=== PATIENT | male | born 1965 | race Caucasian/White ===

== ENCOUNTER 2016-09-19 13:30 | Observation (INO) ==
[2016-09-19] MEDS ORDERED: 0.9 % Sodium Chloride 1,000 ML IVC ONE ×2 (13:51→16:00)
[2016-09-19] MEDS ORDERED: *HR* HYDROmorphone (PF) 1 MG/ML SYRINGE IV ONE (13:51)
[2016-09-19] MEDS ORDERED: Ondansetron 4 MG/2 ML VIAL IV ONE (13:51)
--- NOTE | 2016-09-19 14:34 | Emergency Department Note ---
Disposition Clinical Impression: Ureterolithiasis, Intractable pain Disposition: Admitted As Inpatient Abdominal Pain HPI - General Chief Complaint: ED Urogenital-Male Stated Complaint: R Flank Pain Time Seen by Provider: 09/19/16 13:50 Source: family Mode of arrival: ambulatory Nursing Notes Reviewed: Yes Vital Signs Reviewed: Yes - History of Present Illness Pt Subjective Complaint: flank pain Onset (ago): day(s) (2) Consistency: constant Location: R flank Pain Scale: 10 Quality: stabbing, sharp Radiation: R flank Improves with: nothing Worsens with: nothing Context: other (Diagnosed with a 3 mm right ureteral calculus on friday) Associated symptoms: Reports: nausea, vomiting. Denies: dysuria, hematemesis Treatments prior to arrival: prescription analgesics - Related Data Home Medications Medication Instructions Recorded Confirmed Meloxicam [Mobic] 7.5 mg PO DAILY 09/19/16 09/19/16 Omeprazole [PriLOSEC] 20 mg PO BIDAC 09/19/16 09/19/16 Tamsulosin [Flomax] 0.4 mg PO DAILY 09/19/16 09/19/16 Allergies Allergy/AdvReac Type Severity Reaction Status Date / Time Penicillins Allergy Rash Verified 09/19/16 13:45 All systems ED: reviewed and negative except as stated. Constitutional: Denies: fever, chills Gastrointestinal: Reports: nausea, hematochezia Abdominal Pain PMH - Past Medical History Medical history: Reports: kidney stones - Social History Smoking status: Unknown if ever smoked Physical Exam - General Limitations: no limitations General appearance: alert, in distress (writhing in pain) - Eye Eye exam: Present: normal appearance, PERRL, EOMI - ENT ENT exam: normal exam, normal oropharynx, mucous membranes moist - Neck Neck exam: Present: normal inspection, full ROM, trachea midline - Chest Chest inspection: Present: normal inspection, symmetric chest wall rise - Respiratory Respiratory exam: Present: normal lung sounds bilaterally - Cardiovascular Cardiovascular exam: Present: regular rate, normal rhythm, normal heart sounds - Abdominal Exam Abdominal exam: Present: soft, Non-Tender. Absent: tenderness, distention, guarding, rebound, rigidity - Neurological Exam Neurological exam: Present: alert, oriented X3 - Psychiatric Psychiatric exam: Present: agitated - Skin Skin exam: Present: diaphoresis Course Vital Signs Temperature 97.8 F 09/19/16 13:45 Pulse Rate 94 03/09/17 13:45 Respiratory Rate 18 09/19/16 13:45 Blood Pressure 138/77 09/19/16 13:45 O2 Sat by Pulse Oximetry 97 09/19/16 13:45 Temperature 97.8 F 09/19/16 13:45 Pulse Rate 94 09/19/16 13:45 Respiratory Rate 18 09/19/16 13:45 Blood Pressure 138/77 09/19/16 13:45 O2 Sat by Pulse Oximetry 97 09/19/16 13:45 Oxygen Delivery Oxygen Delivery Room Air Abdominal Pain - MDM Narrative Medical decision making narrative: Dr. Spivey to admit - Differential Diagnosis Differential Diagnosis: Likely: calculus of kidney, constipation, colonic obstruction, diverticulitis, small bowel obstruction - Medical Records Medical records reviewed: Yes I reviewed the patient's medical records. - Lab Data Lab results reviewed: Yes I reviewed the patient's lab results. Result diagrams: 09/19/16 15:15 09/19/16 15:15 Lab Results 09/19/16 09/19/16 09/19/16 Range/Units 15:15 15:15 16:00 WBC 10.9 (4.3-11.1) K/mcL RBC 5.65 H (4.19-5.50) M/mcL Hgb 16.2 (12.9-16.9) g/dL Hct 47.2 (37.5-50.1) % MCV 83.5 (83.0-100.0) fL MCH 28.7 (28.0-33.3) pg MCHC 34.3 (31.6-35.5) g/dL RDW 11.8 (11.5-14.5) % Plt Count 138 L (140-400) K/mcL MPV 11.2 (9.4-12.4) fL Immature Gran % 0.6 (0-4) % Seg Neutrophils % 84.2 % Lymphocytes % 8.2 % Monocytes % 6.5 % Eosinophils % 0.3 % Basophils % 0.2 % Neutrophils # 9.2 H (1.6-8.9) K/mcL Lymphocytes # 0.9 (0.6-4.6) K/mcL Monocytes # 0.7 (0.0-1.3) K/mcL Eosinophils # 0.0 (0.0-0.6) K/mcL Basophils # 0.0 (0.0-0.2) K/mcL Sodium 133 L (136-145) mEq/L Potassium 4.1 (3.5-4.5) mEq/L Chloride 100 (98-109) mEq/L Carbon Dioxide 25 (19-29) mEq/L BUN 14 (8-26) mg/dL Creatinine 1.14 (0.72-1.25) mg/dL Est GFR ( Amer) > 60 (> 60) Est GFR (Non-Af Amer) > 60 (> 60) BUN/Creatinine Ratio 12 (6-26) Glucose 103 H (70-99) mg/dL Calculated Osmolality 277 L (280-300) Calcium 9.1 (8.6-10.8) mg/dL Urine Color Yellow (Yellow) Urine Clarity Slightly Hazy (Clear) Urine pH 7.0 (5.0-8.0) pH Units Ur Specific [place] 1.017 (1.010-1.025) Urine Protein 30 H (Neg-Trace) mg/dL Urine Glucose (UA) Normal (Normal) mg/dL Urine Ketones Trace H (Negative) mg/dL Urine Blood Large H (Negative) Urine Nitrite Negative (Negative) Urine Bilirubin Negative (Negative) Urine Urobilinogen Normal (Normal) mg/dL Ur Leukocyte Esterase Negative (Negative) Urine Microscopic RBC TNTC H (0-3) per hpf Urine Microscopic WBC 5-15 H (0-3) per hpf Ur Squamous Epith Cells Many H (None-Few) per lpf Urine Bacteria None Seen (None-Few) per hpf Hyaline Casts None Seen (None-Few) per lpf Ur Culture Indicated? YES A (NO) - Radiology Data Radiology results reviewed: Yes I reviewed the patient's radiology results.
[2016-09-19 15:21] LABS: Basophils % 0.2 %; Eosinophils % 0.3 %; Hematocrit 47.2 % (37.5-50.1); Hemoglobin 16.2 g/dL (12.9-16.9); Immature Granulocytes % 0.6 % (0-4); Lymphocytes # 0.9 K/mcL (0.6-4.6); Lymphocytes % 8.2 %; Mean Corpuscular HGB Conc 34.3 g/dL (31.6-35.5); Mean Corpuscular Hemoglobin 28.7 pg (28.0-33.3); Mean Corpuscular Volume 83.5 fL (83.0-100.0); Mean Platelet Volume 11.2 fL (9.4-12.4); Monocytes # 0.7 K/mcL (0.0-1.3); Monocytes % 6.5 %; Neutrophils # 9.2 K/mcL (1.6-8.9); Platelet Count 138 K/mcL (140-400); Red Blood Count 5.65 M/mcL (4.19-5.50); Red Cell Distribution Width 11.8 % (11.5-14.5); Segmented Neutrophils % 84.2 %
[2016-09-19 15:31] LABS: BUN/Creatinine Ratio 12 (6-26); Blood Urea Nitrogen 14 mg/dL (8-26); Calcium 9.1 mg/dL (8.6-10.8); Carbon Dioxide 25 mEq/L (19-29); Chloride 100 mEq/L (98-109); Glucose 103 mg/dL (70-99); Osmolality,Calculated 277 (280-300); Potassium 4.1 mEq/L (3.5-4.5); Sodium 133 mEq/L (136-145); eGFR For African Americans > 60 (> 60); eGFR For Non-African Americans > 60 (> 60)
[2016-09-19] MEDS ORDERED: Ondansetron 4 MG/2 ML VIAL IVP PRN (16:01)
[2016-09-19] MEDS ORDERED: *HR* HYDROmorphone (PF) 1 MG/ML SYRINGE IV PRN ×2 (16:01→16:33)
[2016-09-19 16:08] LABS: Bilirubin,Urine Negative (Negative); Blood,Urine Large (Negative); Color,Urine Yellow (Yellow); Glucose,Urine (UA) Normal (Normal); Ketones,Urine Trace mg/dL (Negative); Leukocyte Esterase,Urine Negative (Negative); Nitrite,Urine Negative (Negative); Protein,Urine 30 mg/dL (Neg-Trace); Specific Gravity,Urine 1.017 (1.010-1.025); Urobilinogen,Urine Normal (Normal)
[2016-09-19 16:12] LABS: Bacteria,Urine None Seen per hpf (None-Few); Hyaline Casts,Urine None Seen per lpf (None-Few); RBC,Urine TNTC per hpf (0-3); Squamous Epithelial Cell,Urine Many per lpf (None-Few)
[2016-09-19 16:13] LABS: Clarity,Urine Slightly Hazy (Clear)
[2016-09-19] MEDS ORDERED: Naloxone 0.4 MG/ML INJ IVP PRN (16:30)
[2016-09-19] MEDS ORDERED: Acetaminophen 325 MG TABLET PO PRN (16:30)
[2016-09-19] MEDS ORDERED: *HR* OxyCODONE Immed Rel 5 MG TABLET PO PRN (16:30)
[2016-09-19] MEDS ORDERED: *HR* Promethazine 25 MG/ML VIAL IVP PRN (16:30)
[2016-09-19] MEDS ORDERED: Ketorolac 15 MG/ML VIAL IVP PRN (16:30)
--- NOTE | 2016-09-19 17:30 | Urology History & Physical ---
Date of Encounter: 09/19/16 Time of Encounter: 17:27 Assessment and Plan (1) Ureterolithiasis Current Visit: Yes Status: Acute 51 year old man with a right ureteral stone. He will be admitted for pain control. If he continues to have pain we will consider right ureteroscopy, laser lithotripsy, and stent placement. We discussed the etiology of stone disease and the importance of removing the entire stone burden. The patient understands that it may take more than one procedure for him to become completely stone-free. I explained to the patient that due to the location and size of his stone that ureteroscopy with laser lithotripsy offers the best chance at being stone-free with one procedure. The patient understands that this procedure involves using a small flexible scope to access the ureter under general anesthesia. The patient understands that after the procedure, it is likely that he will have an indwelling ureteral stent (a plastic drainage tube from the kidney to the bladder) though this is sometimes not necessary. I explained to that patient that this stent would have to be removed at a later time in my office (usually 1-2 weeks after ureteroscopy). We discussed the risks of the procedure including but not limited to bleeding, infection, failure to remove all stones, need for multiple operations and procedures, and damage to the kidney, bladder, or ureter. I explained to the patient that the risk of perforating the ureteral wall during this procedure is 1-7% and that the treatment for this complication is usually placement of a ureteral stent, though rarely a percutaneous nephrostomy tube (drainage tube through the back into the kidney) or open operation is required. History of Present Illness Chief complaint: Right flank pain HPI: Mr. Darnell is a 51 year old male who presents with right flank pain. He was seen 4 days ago at the [facility] and a CT scan showed a stone in the right distal ureter. His pain became more severe this morning. He started to have nausea and emesis. He came to the [place] emergency room. A repeat CT scan showed persistence of the right distal ureteral stone with evidence of hydronephrosis. The pain was in the right flank and radiating to the groin. It was quite severe. Pain medication and eventually help the pain. He reports a history of stones. He hasn't had a have surgery previously. Past Med Surg Social Fam HX - Past Medical History Medical history: kidney stones - Social History Smoking Status: Unknown if ever smoked - Family History Father Hx Family Genitourinary Disorders: No (No stone history.) Medications and Allergies Meloxicam [Mobic] 7.5 mg PO DAILY 09/19/16 [History] Omeprazole [PriLOSEC] 20 mg PO BIDAC 09/19/16 [History] Tamsulosin [Flomax] 0.4 mg PO DAILY 09/19/16 [History] Allergies Penicillins Allergy (Verified 09/19/16 13:45) Rash Review of Systems - Constitutional no chills, no fever(s) - EENT Nose, mouth and throat: no dizziness - Cardiovascular no chest pain - Respiratory no dyspnea - Gastrointestinal nausea, vomiting - Genitourinary flank pain, no hematuria - Musculoskeletal no back pain - Integumentary no erythema, no rash - Neurological no weakness - Psychiatric no suicidal ideation - Hematologic/Lymphatic no easy bleeding - Allergic/Immunologic no wheezing Exam Initial Vital Signs Temp Pulse Resp BP Pulse Ox 97.8 F 94 18 138/77 97 09/19/16 13:45 09/19/16 13:45 09/19/16 13:45 09/19/16 13:45 09/19/16 13:45 - General physical appearance Present: well developed, well nourished, no distress - Eyes Absent: icteric - ENT Present: normal nares - Neck Present: trachea midline - Respiratory Present: normal respiratory effort - Cardiovascular Cardiovascular exam IM: RRR - Abdomen Abdomen: Present: soft Urology Results - Labs 09/19/16 15:15 09/19/16 15:15 Abnormal lab results RBC 5.65 M/mcL (4.19-5.50) H 09/19/16 15:15 Plt Count 138 K/mcL (140-400) L 09/19/16 15:15 Neutrophils # 9.2 K/mcL (1.6-8.9) H 09/19/16 15:15 Sodium 133 mEq/L (136-145) L 09/19/16 15:15 Glucose 103 mg/dL (70-99) H 09/19/16 15:15 Calculated Osmolality 277 (280-300) L 09/19/16 15:15 Urine Protein 30 mg/dL (Neg-Trace) H 09/19/16 16:00 Urine Ketones Trace mg/dL (Negative) H 09/19/16 16:00 Urine Blood Large (Negative) H 09/19/16 16:00 Urine Microscopic RBC TNTC per hpf (0-3) H 09/19/16 16:00 Urine Microscopic WBC 5-15 per hpf (0-3) H 09/19/16 16:00 Ur Squamous Epith Cells Many per lpf (None-Few) H 09/19/16 16:00 Ur Culture Indicated? YES (NO) A 09/19/16 16:00 All other labs normal. - Imaging CT scan - abdomen: report reviewed, image reviewed CT scan - pelvis: report reviewed, image reviewed
--- NOTE | 2016-09-20 09:48 | Urology Progress Note ---
Date of Encounter: 09/20/16 Time of Encounter: 09:47 - Assessment and Plan (1) Ureterolithiasis Current Visit: Yes Status: Acute Assessment and plan: Right ureteral stone. Plan for right ureteroscopy, laser lithotripsy, and stent placement. He is aware of all risks of the surgery. He is willing to proceed. Progress Note Narrative: Doing okay. Mild pain overnight. He hasn't passed his stone. Objective Initial Vital Signs Temp Pulse Resp BP Pulse Ox 97.8 F 94 18 138/77 97 09/19/16 13:45 09/19/16 13:45 09/19/16 13:45 09/19/16 13:45 09/19/16 13:45 - General physical appearance Present: well developed, well nourished, no distress - Respiratory Present: normal respiratory effort - Abdomen Present: soft - Labs 09/19/16 15:15 09/19/16 15:15 Consult Discharge Plan - Plan Referrals: Prasanna Nichole [Primary Care Provider] -
[2016-09-20] MEDS ORDERED: Levofloxacin 500 MG/100 ML 500 MG/100 ML BAG IVPB SCH (14:00)
[2016-09-20] MEDS ORDERED: Famotidine 20 MG/2 ML VIAL IVP ONE ×2 (16:04→18:31)
[2016-09-20] MEDS ORDERED: Albuterol 2.5 MG/3 ML NEBULIZER IH ONE ×2 (16:04→18:31)
--- NOTE | 2016-09-20 16:07 | Anesthesia Evaluation PreOp ---
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 Significant HX Other Medical History: Denies Any Significant HX Anesthesia History: No Prior Anesthetic Complications Alcohol Use: occasionally Drug use: none Medications and Allergies Meloxicam [Mobic] 7.5 mg PO DAILY 09/19/16 [History] Omeprazole [PriLOSEC] 20 mg PO BIDAC 09/19/16 [History] Tamsulosin [Flomax] 0.4 mg PO DAILY 09/19/16 [History] Allergies Penicillins Allergy (Verified 09/19/16 13:45) Rash - Meds/Allergy Pre-op Review Medications Reviewed: Yes Allergies Reviewed: Yes Beta Blockers on Current Med List: No Anesthesia Results - Labs 09/19/16 15:15 09/19/16 15:15 Anesthesia Exam O2 Sat O2 Sat by Pulse Oximetry 96 O2 Sat by Pulse Oximetry 97 O2 Sat by Pulse Oximetry 95 O2 Sat by Pulse Oximetry 94 O2 Sat by Pulse Oximetry 94 O2 Sat by Pulse Oximetry 94 Vital Signs Temp Pulse Resp BP Pulse Ox 97.8 F 94 18 138/77 97 09/19/16 13:45 09/19/16 13:45 09/19/16 13:45 09/19/16 13:45 09/19/16 13:45 Height: 5'6 Weight: 160 lbs NPO (# of Hours): MN Pain Scale: 0 - HEENT Pupil (Motor): Pupils equal, EOMI Mallampati: III Teeth: Normal Oral Opening: Less than or equal to 3 - WINDOWS TECHNICAL SPECIALIST LOC: Oriented [employer]INDOWS TECHNICAL SPECIALIST Motor: Normal RUE, Normal LUE, Normal RLE, Normal LLE, Normal Face [employer]INDOWS TECH[employer]ICAL SPECIALIST Sensory: Normal: RUE, LUE, RLE, LLE, Face - Cardiac Rhythm: Regular Murmur: None JVD: No Carotid Bruit: No - Pulmonary Breath Sounds: bilateral Clear Respiratory Effort: Symmetrical Anesthesia Assess/Plan ASA Score: 2 Modified Crenshaw Scale for Level of Consciousness: Cooperative, oriented, and tranquil Anesthetic Plan: General Monitoring Plan: Standard Monitors Recovery Plan: PACU (Discussed GA, agrees to proceed)
[2016-09-20] MEDS ORDERED: Famotidine 20 MG/2 ML VIAL ONE (16:10)
--- NOTE | 2016-09-20 17:00 | Operative Note ---
Date of procedure: 09/20/16 Pre-op diagnosis: Right distal ureteral stone Post-op diagnosis: same Procedure: Right ureteroscopy, basket stone extraction, and right ureteral stent placement. Implants: 6 [place] x 26cm JJ stent. Complications: None. Anesthesia: EMILY Surgeon: Danny Spivey Estimated blood loss (cc): 1 Specimen: right ureteral stone Condition: stable Disposition: PACU Procedure in Detail: Indications: Mr. Darnell is a 51-year-old gentleman who has a history of right flank pain. A CT scan showed a 3 mm stone in the distal right ureter. He elected to undergo a right ureteroscopy, laser lithotripsy, and stent placement. He is aware of the risks of the procedure including but not limited to bleeding, infection, injury to other structures, need for further procedures, stent irritation, and the risk of anesthesia. He is willing to proceed. Procedure: After informed consent was obtained the patient was brought back to the operating room and placed in supine position. A time out was performed. General anesthesia was administered and an LMA was placed. He was then placed in the lithotomy position. He was prepped and draped in the usual sterile fashion. Cystoscopy was performed. The anterior urethra was normal. There was no evidence of bladder tumors. The ureteral orifices were in the normal orthotopic position. The Sensor wire was placed in the right ureteral orifice and brought into the kidney under fluoroscopic guidance. The ureter was dilated with the 8/ 10 dilator. I then advanced the semirigid ureteroscope into the ureter. The stone was basket extracted. A 6 [place] by 26cm JJ stent was then placed with good curl seen in the kidney and the bladder. The dangle string left intact. It was secured to the penis with a tegaderm. The patient was then awakened from general anesthesia and brought to recovery room in good condition. All sponge, needle, and instrument counts were correct.
--- NOTE | 2016-09-20 17:04 | Discharge Summary ---
Date of Encounter: 09/20/16 Time of Encounter: 18:30 - Discharge Diagnosis (1) Ureterolithiasis Priority: Primary Status: Acute - Discharge Medications Prescriptions: Oxycodone HCl/Acetaminophen [Percocet 5-325 mg Tablet] 1 each PO Q4HR PRN #25 tablet PRN Reason: Pain Docusate [Colace] 100 mg PO BID #60 capsule Phenazopyridine HCl [Pyridium] 200 mg PO TIDAC #12 tab Home Medications: Meloxicam [Mobic] 7.5 mg PO DAILY 09/19/16 [History] Omeprazole [PriLOSEC] 20 mg PO BIDAC 09/19/16 [History] Tamsulosin [Flomax] 0.4 mg PO DAILY 09/19/16 [History] Docusate [Colace] 100 mg PO BID #60 capsule 09/20/16 [Rx] Oxycodone HCl/Acetaminophen [Percocet 5-325 mg Tablet] 1 each PO Q4HR PRN #25 tablet 09/20/16 [Rx] Phenazopyridine HCl [Pyridium] 200 mg PO TIDAC #12 tab 09/20/16 [Rx] Allergies/Adverse Reactions: Allergies Penicillins Allergy (Verified 09/19/16 13:45) Rash Labs on day of discharge: Labs from last 24 hours 09/20/16 05:59 POC Glucose 101 H Date of admission: 09/19/16 16:12 Primary care physician: Prasanna Nichole Discharging clinician: Danny Spivey Anticipated date of discharge: 09/20/16 - Patient Status Disposition: Home, Self-Care Condition: Good Functional capacity at discharge: independent ambulation Overall status at discharge: patient is progressing back to baseline - Discharge Instructions Follow Up With: Danny Spivey MD [Partnered Physician] - (2 weeks.) Additional Instructions: 1. The patient can remove stent in 5 days by pulling on the string. 2. She should expect to feel flank pain with voiding. 3. The patient should call for any fevers, chills, nausea, emesis, or uncontrolled pain. 4. Please provide a work excuse if necessary for up to 1 week off. 5. He can follow-up with Dr. Spivey in 2 weeks for a postoperative check. - Diet and Activity Activity: increase activity as tolerated Diet: advance to your usual diet - Hospital Course Hospital course: Mr. Darnell is a 51 year old male who presented with right flank pain on September 19, 2016. He had a CT scan which showed a 3 mm distal right ureteral stone. He was admitted for pain control. He continued to have pain on hospital day #2. He then underwent a right ureteroscopy, laser lithotripsy, and stent placement. She did well after surgery and was discharged home later that day. - Time Spent with Patient Total time spent providing and/or coordinating discharge services: Less than 30 minutes Exam Initial Vital Signs Temp Pulse Resp BP Pulse Ox 97.8 F 94 18 138/77 97 09/19/16 13:45 09/19/16 13:45 09/19/16 13:45 09/19/16 13:45 09/19/16 13:45 - General physical appearance Present: well developed, well nourished, no distress - Eyes Absent: icteric - ENT Present: normal nares - Neck Present: trachea midline - Respiratory Present: normal respiratory effort - Cardiovascular Cardiovascular exam IM: RRR - Abdomen Abdomen: Present: soft
[2016-09-20] MEDS ORDERED: *HR* Midazolam HCl 2 MG/2 ML VIAL ONE (17:20)
[2016-09-20] MEDS ORDERED: *HR* FentaNYL (PF) 100 MCG/2 ML VIAL ONE (17:20)
[2016-09-20] MEDS ORDERED: Lidocaine -MPF 2% 2 ML VIAL ONE (17:20)
[2016-09-20] MEDS ORDERED: *HR* Propofol 200 MG/20 ML VIAL IVP ONE (17:20)
[2016-09-20] MEDS ORDERED: Ondansetron 4 MG/2 ML VIAL ONE (17:20)
[2016-09-20] MEDS ORDERED: Dexamethasone 4 MG/ML VIAL ONE (17:20)
[2016-09-20] MEDS ORDERED: *HR* HYDROmorphone 2 MG/ML SYRINGE ONE (17:26)
[2016-09-20] MEDS ORDERED: *HR* Promethazine 25 MG/ML VIAL IVP PRN ×2 (17:32→18:31)
[2016-09-20] MEDS ORDERED: *HR* HYDROmorphone (PF) 1 MG/ML SYRINGE IVP PRN (17:32)
[2016-09-20] MEDS ORDERED: Acetaminophen 325 MG TABLET PO PRN (18:31)
[2016-09-20] MEDS ORDERED: Naloxone 0.4 MG/ML INJ IVP PRN (18:31)
[2016-09-20] MEDS ORDERED: Ondansetron 4 MG/2 ML VIAL IVP PRN (18:31)
[2016-09-20] MEDS ORDERED: *HR* OxyCODONE Immed Rel 5 MG TABLET PO PRN (18:31)
[2016-09-20] MEDS ORDERED: *HR* HYDROmorphone (PF) 1 MG/ML SYRINGE IV PRN (18:31)
[2016-09-20] MEDS ORDERED: Ketorolac 15 MG/ML VIAL IVP PRN (18:31)
--- NOTE | 2016-09-20 18:43 | Anesthesia Evaluation Post Op ---
Date of Encounter: 09/20/16 Time of Encounter: 18:15 - Vital Signs Vital Signs: Vital Signs/O2 Sat/Glucose, Most Current Temp Pulse Resp BP Pulse Ox 09/20/16 18:25 97.4 F L 89 16 137/91 97 09/20/16 18:19 97.8 F 83 16 136/97 95 09/20/16 18:09 96 16 141/96 93 L 09/20/16 17:59 94 16 134/90 92 L 09/20/16 17:49 97.9 F 85 16 107/79 96 09/20/16 14:50 98.1 F 98 16 123/84 96 - Lungs Lungs: Clear Ascult./Percussion - Airway Airway: Non-obstructed - Cardiovascular Regular Rate - Mental Status Mental Status: Alert & Oriented, Answers Appropriately - Pain Pain Scale: 0 - Nausea Vomiting Nausea Vomiting: Not Present - Hydration Hydration: Ice chips - Discharge PostOp Status: Transfer Patient to floor
[2016-09-20 19:52] VITALS: BP 144/93
== END 2016-09-20 19:55 | disposition home or self-care (01) ==
LOC: EMEROO 13:30 → 3ANU 13:30
PROVIDERS: ADMIT Urology; ATTEND Urology